=== PATIENT | female | born 1985 | race Caucasian/White ===

== ENCOUNTER 2021-04-22 18:01 | Inpatient (IN) ==
[2021-04-22] MEDS ORDERED: Dinoprostone 10 MG VAG.SUPP VAGINAL ONE (19:07)
[2021-04-22] MEDS ORDERED: Lactated Ringers 1000 ml BAG 1,000 ML IV ONE (19:08)
[2021-04-22] MEDS ORDERED: Buffered Lidocaine 1% SYRIN 1 ml INTRADERM ONE (19:08)
[2021-04-22] MEDS ORDERED: Lactated Ringers 1000 ml BAG 1,000 ML IV SCH (20:00)
[2021-04-22 22:54] LABS: Urine Benzodiazepine Screen None Detected (None Detect); Urine Cannabinoids Screen None Detected (None Detect); Urine Opiates Screen None Detected (None Detect)
[2021-04-23 07:21] LABS: ABS Lymphocytes 1.1 10^3/ul (1.0-4.8); ABS Monocytes 0.9 10^3/ul (0-0.8); ABS Neutrophils 12.5 10^3/ul (1.5-7.7); Eosinophil % 0.1 %; Hematocrit 39 % (35-47); Hemoglobin 13.1 g/dL (12.0-16.0); Lymphocyte % 7.5 %; Mean Corpuscular HGB Conc 34 g/dL (31-36); Mean Corpuscular Hemoglobin 31 pg (27-31); Mean Corpuscular Volume 92 fL (80-97); Mean Platelet Volume 10.4 fL (7.4-10.4); Platelet Count 137 10^3/uL (150-450); Red Blood Count 4.21 10^6 /uL (3.70-4.87); Red Cell Distribution Width 14 % (10-15); White Blood Count 14.6 10^3/uL (3.5-10.8)
[2021-04-23 09:07] LABS: Activated Partial Thrombo Time 27.9 seconds (26.0-38.0); INR 0.96 (0.86-1.15)
[2021-04-23] MEDS ORDERED: OBEPIDURAL (200 ML) 200 ML EPIDURAL ONE (09:56)
[2021-04-23] MEDS ORDERED: Lactated Ringers 1000 ml BAG 500 ML IV PRN ×2 (10:46)
[2021-04-23] MEDS ORDERED: Phenylephrine 40 mcg/mL 10mL (400mcg) SYRINGE IV PUSH PRN ×2 (10:46)
[2021-04-23] MEDS ORDERED: EPHEDrine (Pressors) 50 MG/ML VIAL IV PUSH PRN ×2 (10:46)
[2021-04-23] MEDS ORDERED: Lactated Ringers 1000 ml BAG 1,000 ML IV ONE (10:46)
[2021-04-23] MEDS ORDERED: Sodium Citrate/Citric Acid LIQ 15 ML UDC PO PRN (10:46)
[2021-04-23] MEDS ORDERED: Lactated Ringers 1000 ml BAG 1,000 ML IV SCH ×2 (11:00→19:00)
[2021-04-23] MEDS ORDERED: OBEPIDURAL (200 ML) 200 ML EPIDURAL SCH (11:00)
[2021-04-23 12:19] LABS: Urine Appearance Clear; Urine Bilirubin Negative (Negative); Urine Blood Negative (Negative); Urine Color Yellow; Urine Glucose Negative (Negative); Urine Ketones Trace (Negative); Urine Nitrite Negative (Negative); Urine Protein Negative (Negative); Urine Specific Gravity 1.016 (1.002-1.030); Urine Urobilinogen Negative (Negative)
[2021-04-23] MEDS ORDERED: Oxytocin in LR 20 UNITS/1,000 ML BAG IVPB SCH ×2 (14:00→19:00)
[2021-04-23] MEDS ORDERED: Glycerin ADULT 2.4 gm SUPP PR PRN (18:22)
[2021-04-23] MEDS: Witch Hazel PAD JAR TOPICAL PRN (20:14)
[2021-04-23] MEDS: Dibucaine 1% OINT 28.35 GM TUBE PR PRN (20:14)
[2021-04-24] MEDS: Dibucaine 1% OINT 28.35 GM TUBE PR PRN ×2 (00:46→19:45)
[2021-04-24] MEDS: Enoxaparin 40 MG/0.4 ML SYR SUBCUT SCH (06:13)
[2021-04-24 06:25] LABS: ABS Basophils 0.1 10^3/ul (0-0.2); ABS Lymphocytes 1.5 10^3/ul (1.0-4.8); ABS Monocytes 1.1 10^3/ul (0-0.8); ABS Neutrophils 10.1 10^3/ul (1.5-7.7); Eosinophil % 0.3 %; Hematocrit 30 % (35-47); Hemoglobin 10.3 g/dL (12.0-16.0); Lymphocyte % 11.6 %; Mean Corpuscular HGB Conc 35 g/dL (31-36); Mean Corpuscular Hemoglobin 32 pg (27-31); Mean Corpuscular Volume 91 fL (80-97); Mean Platelet Volume 9.4 fL (7.4-10.4); Nucleated Red Blood Cells % 0.1; Platelet Count 113 10^3/uL (150-450); Red Blood Count 3.25 10^6 /uL (3.70-4.87); Red Cell Distribution Width 15 % (10-15); White Blood Count 12.8 10^3/uL (3.5-10.8)
[2021-04-24] MEDS: Witch Hazel PAD JAR TOPICAL PRN (19:45)
[2021-04-25] MEDS: Enoxaparin 40 MG/0.4 ML SYR SUBCUT SCH (06:07)
[2021-04-26] MEDS: Enoxaparin 40 MG/0.4 ML SYR SUBCUT SCH (06:43)
[2021-04-26 08:30] VITALS: BP 118/67
[2021-04-26] MEDS: Witch Hazel PAD JAR TOPICAL PRN (14:48)
[2021-04-26] MEDS: Dibucaine 1% OINT 28.35 GM TUBE PR PRN (14:48)
== END 2021-04-26 19:00 | disposition home or self-care (01) | DRG 560 ==
LOC: MCHOBOUT 18:01 → MCHOB 19:02
PROVIDERS: ADMIT Obstetrics & Gynecology; ATTEND Obstetrics & Gynecology